=== PATIENT | female | born 1965 | race Two or more races ===

== ENCOUNTER 2022-07-24 11:27 | Emergency (ER) | payer OTHER, SELFPAY ==
--- NOTE | ~2022-07-24 | XR_ITS ---
EXAMINATION: THORACIC SPINE. RIGHT KNEE. LEFT ANKLE. CLINICAL INFORMATION: Pain. Fall COMPARISON: None TECHNIQUE: 2 views of the thoracic spine. 4 views of the right knee. 3 views of the left ankle. FINDINGS: Thoracic spine: No fracture or destructive process. Paraspinal soft tissues are normal. Right knee: No fracture, dislocation or destructive lesion or joint effusion. Left ankle: No fracture, dislocation or destructive process. The ankle mortise is intact. XR/XR knee RT 4V IMPRESSION: Unremarkable studies.
--- NOTE | ~2022-07-24 | XR_ITS ---
EXAMINATION: THORACIC SPINE. RIGHT KNEE. LEFT ANKLE. CLINICAL INFORMATION: Pain. Fall COMPARISON: None TECHNIQUE: 2 views of the thoracic spine. 4 views of the right knee. 3 views of the left ankle. FINDINGS: Thoracic spine: No fracture or destructive process. Paraspinal soft tissues are normal. Right knee: No fracture, dislocation or destructive lesion or joint effusion. Left ankle: No fracture, dislocation or destructive process. The ankle mortise is intact. XR/XR thoracic spine 3V IMPRESSION: Unremarkable studies.
--- NOTE | ~2022-07-24 | XR_ITS ---
EXAMINATION: THORACIC SPINE. RIGHT KNEE. LEFT ANKLE. CLINICAL INFORMATION: Pain. Fall COMPARISON: None TECHNIQUE: 2 views of the thoracic spine. 4 views of the right knee. 3 views of the left ankle. FINDINGS: Thoracic spine: No fracture or destructive process. Paraspinal soft tissues are normal. Right knee: No fracture, dislocation or destructive lesion or joint effusion. Left ankle: No fracture, dislocation or destructive process. The ankle mortise is intact. XR/XR ankle LT min 3V IMPRESSION: Unremarkable studies.
--- NOTE | 2022-07-24 12:19 | ED_ITS ---
HPI - Fall General Chief Complaint: Fall <Selena Sampson CNP - Last Filed: 07/24/22 12:26> Stated Complaint: fall at work <Selena Sampson CNP - Last Filed: 07/24/22 12:26> Time Seen by Provider: 07/24/22 14:13 <Selena Sampson CNP - Last Filed: 07/24/22 12:26> Source: patient and RN notes reviewed <ROBERT Ríos - Last Filed: 07/24/22 14:50> Mode of arrival: ambulatory <ROBERT Ríos - Last Filed: 07/24/22 14:50> Limitations: no limitations <ROBERT Ríos - Last Filed: 07/24/22 14:50> History of Present Illness HPI Narrative: This is a [id number]-fad-female, with a past medical history of hyperlipidemia and hypertension, presenting to the emergency department with complaints of right ankle, right knee, and back pain status post slip and fall which occurred at work this afternoon. Patient reports that she accidentally slipped in a puddle of water at work, and fell onto her buttocks and back. She states that she believes that she twisted her right ankle during this fall. She denies hitting her head or loss of consiousness. She was able to bear weight after the fall. She denies taking any medications prior to her arrival. She reports that she forgot to take her lisinopril this morning. <ROBERT Ríos - Last Filed: 07/24/22 14:50> MD complaint: fall <ROBERT Ríos - Last Filed: 07/24/22 14:50> Onset (ago): hour(s) <ROBERT Ríos Last Filed: 07/24/22 14:50> Fall from: standing <ROBERT Ríos Last Filed: 07/24/22 14:50> Place fall occurred: work <ROBERT Ríos Last Filed: 07/24/22 14:50> Loss of consciousness: none <ROBERT Ríos Last Filed: 07/24/22 14:50> Symptoms prior to fall: none <ROBERT Ríos Last Filed: 07/24/22 14:50> Context: tripped/slipped <ROBERT Ríos - Last Filed: 07/24/22 14:50> Location of injury: back and buttocks <ROBERT Ríos - Last Filed: 07/24/22 14:50> Location of injury - extremities: left: ankle and right: knee <ROBERT Ríos - Last Filed: 07/24/22 14:50> Severity: moderate <ROBERT Ríos - Last Filed: 07/24/22 14:50> Quality: aching <ROBERT Ríos - Last Filed: 07/24/22 14:50> Associated symptoms (after fall): denies <ROBERT Ríos - Last Filed: 07/24/22 14:50> Related Data Allergies/Adverse Reactions: Allergies Allergy/AdvReac Type Severity Reaction Status Date / Time No Known Allergies Allergy Verified 07/24/22 12:19 <Selena Sampson CNP - Last Filed: 07/24/22 12:26> Review of Systems Review of Systems: Yes all other systems are reviewed and are negative <ROBERT Ríos - Last Filed: 07/24/22 14:50> [facility] Social History Social History: Social History Advance Directives: No Advance Directives Information Provided: No <Selena Sampson CNP - Last Filed: 07/24/22 12:26> Physical Exam Vital Signs: Vital Signs: Last Vital Signs Temp 96.9 F 07/24/22 12:20 Pulse 66 07/24/22 12:20 Resp 14 07/24/22 12:20 BP 190/94 H 07/24/22 12:20 Pulse Ox 99 07/24/22 12:20 O2 Del Method 07/24/22 12:20 BMI result Body Mass Index 21.6 <Selena Sampson CNP - Last Filed: 07/24/22 12:26> Vital Signs: Last Vital Signs Temp 96.9 F 07/24/22 12:20 Pulse 66 07/24/22 12:20 Resp 14 07/24/22 12:20 BP 190/94 H 07/24/22 12:20 Pulse Ox 99 07/24/22 12:20 O2 Del Method 07/24/22 12:20 BMI result Body Mass Index 21.6 Appearance: Alert. Oriented X3. No acute distress. HEENT: normal inspection CVS: Normal heart rate and rhythm. Pulses normal. Respiratory: No respiratory distress. Skin: Skin warm and dry. Normal skin color. Normal skin turgor. No rashes. Extremities: Tenderness to palpation over the lateral mallelous without any edema or bony abnormalities. Good strength with plantar flexion and dorsiflexion. Neuro: Oriented X 3. No motor deficit. No sensory deficit. <ROBERT Ríos - Last Filed: 07/24/22 14:50> Course Course Course Narrative: This is an RME: Additional HPI, ROS, PE not included below will be deferred to primary provider. Patient is a 57-year-old female who presents emergency department for evaluation after a fall at work. Occurred today, slipped and fall, landing on her back. Complaining of pain between the shoulders, left ankle, and right knee. Denies head strike, LOC, AC usage <Selena Sampson CNP - Last Filed: 07/24/22 12:26> This is an RME: Additional HPI, ROS, PE not included below will be deferred to primary provider. Patient is a 57-year-old female who presents emergency department for evaluation after a fall at work. Occurred today, slipped and fall, landing on her back. Complaining of pain between the shoulders, left ankle, and right knee. Denies head strike, LOC, AC usage <ROBERT Ríos - Last Filed: 07/24/22 14:50> Reevaluation(s) Reevaluation #1: X-rays of knee, ankle and thoracic spine reviewed and are unremarkable. Patient medicated in department with tylenol 1g PO and lisinopril 20mg PO. BP elevated at 190/94, patient states she did not take her lisinopril this morning, patient given dose, lisinopril 20mg, will recheck. <ROBERT Ríos - Last Filed: 07/24/22 14:50> Time: 14:47 <ROBERT Ríos - Last Filed: 07/24/22 14:50> Medical Decision Making Medical Decision Making MDM Narrative: 31-hhft-upr-female, with a past medical history of hypertension, presenting to the emergency department with left ankle pain status post fall which occurred at work today. She reported knee pain and back pain during triage, only reporting ankle pain at this time. <ROBERT Ríos - Last Filed: 07/24/22 14:50> Differential Diagnosis Differential Diagnoses: The differential diagnosis associated with the presentation includes <ROBERT Ríos - Last Filed: 07/24/22 14:50> left ankle sprain, left ankle strain, left ankle fracture, knee sprain, muscle strain <ROBERT Ríos - Last Filed: 07/24/22 14:50> Independent Interpretation I performed an independent interpretation of an: Plain X-Ray <ROBERT Ríos - Last Filed: 07/24/22 14:50> Interpretation: Left ankle, right knee and thoracic spine x-rays reviewed with no acute bony abnormalities or fractures <ROBERT Ríos - Last Filed: 07/24/22 14:50> Radiology Impression Discussion of test interpretation with radiology: I have reviewed the radiologist's reading. <ROBERT Ríos - Last Filed: 07/24/22 14:50> Radiologist Impression: XR/XR thoracic spine 3V IMPRESSION: Unremarkable studies.? XR/XR knee RT 4V IMPRESSION: Unremarkable studies.? XR/XR ankle LT min 3V IMPRESSION: Unremarkable studies.? <ROBERT Ríos - Last Filed: 07/24/22 14:50> Discharge Plan Discharge Clinical Impression: Ankle sprain, Hypertension, Muscle strain <Selena Sampson CNP - Last Filed: 07/24/22 12:26> Patient Disposition: Home, Self-Care <Selena Sampson CNP - Last Filed: 07/24/22 12:26> Instructions: Ankle Sprain (ED) <Selena Sampson CNP - Last Filed: 07/24/22 12:26> Additional Instructions: Your ankle, knee, and thoracic spine x-rays were normal today. Please rest, ice, and elevate your ankle over the next few days. You may use charles wrap for comfort. Follow up with your primary care physician. Take all regular prescribed medications as directed. If you develop new or worsening symptoms call 911 or come back to the ER for further evaluation. <Selena Sampson, FRAN - Last Filed: 07/24/22 12:26>
[2022-07-24 12:20] VITALS: BP 190/94; PULSE 66; RESP 14; TEMP 36.1; O2SAT 99; BMI 21.6
--- NOTE | 2022-07-24 14:27 | ED.FALL ---
HPI - Fall General Chief Complaint: Fall Stated Complaint: fall at work Time Seen by Provider: 07/24/22 14:13 Source: patient and RN notes reviewed Mode of arrival: ambulatory Limitations: no limitations History of Present Illness HPI Narrative: This is a [id number]-female, with a past medical history of hypertension, presenting to the emergency department, with a complaint of left ankle pain since today. Patient states that while she was at work today, she accidentally slipped in water and landed onto her buttocks. She states that she believes that she twisted her ankle during this slip and fall. She denies hitting her head or loss of consciousness. She states that she is able to bear minimal weight on her left leg secondary to pain. Patient states that she forgot to take her lisinopril this morning. MD complaint: fall Onset (ago): hour(s) Fall from: standing Place fall occurred: work Loss of consciousness: none Symptoms prior to fall: none Context: tripped/slipped Location of injury - extremities: left: ankle Severity: moderate Quality: aching Associated symptoms (after fall): denies Related Data Allergies Allergy/AdvReac Type Severity Reaction Status Date / Time No Known Allergies Allergy Verified 07/24/22 12:19 Review of Systems Review of Systems: Yes all other systems are reviewed and are negative PMFSH Social History Social History Advance Directives: No Advance Directives Information Provided: No Physical Exam Vital Signs: Vital Signs: Last Vital Signs Temp 96.9 F 07/24/22 12:20 Pulse 66 07/24/22 12:20 Resp 14 07/24/22 12:20 BP 190/94 H 07/24/22 12:20 Pulse Ox 99 07/24/22 12:20 O2 Del Method 07/24/22 12:20 BMI result Body Mass Index 21.6 Appearance: Alert. Oriented X3. No acute distress. HEENT: normal inspection CVS: Normal heart rate and rhythm. Pulses normal. Respiratory: No respiratory distress. Skin: Skin warm and dry. Normal skin color. Normal skin turgor. No rashes. Extremities: tenderness to palpation overlying the left lateral ankle with moderate amount of edema. Neuro: Oriented X 3. No motor deficit. No sensory deficit.
[2022-07-24] MEDS: lisinopriL 20 MG TABLET PO (14:41)
[2022-07-24] MEDS: Acetaminophen 325 MG TABLET 975 MG PO (14:43)
[2022-07-24 14:48] VITALS: BP 182/91
[2022-07-24 14:50] VITALS: BP 182/91
[2022-07-24 15:55] LABS: Glucose, Whole Blood 43 mg/dL (60-115)
[2022-07-24 16:14] VITALS: BP 188/82; PULSE 56; RESP 15; TEMP 36.4; O2SAT 99
[2022-07-24 17:17] VITALS: BP 189/109
[2022-07-24 18:53] LABS: Glucose, Whole Blood 162 mg/dL (60-115)
== END 2022-07-24 17:41 | disposition home or self-care (01) ==
PROVIDERS: Emergency Provider Emergency Medicine; PCP Internal Medicine
DX: S93.401A Sprain of unspecified ligament of right ankle, initial encounter (principal); S96.911A Strain of unspecified muscle and tendon at ankle and foot level, right foot, initial encounter; W18.39XA Other fall on same level, initial encounter; I10 Essential (primary) hypertension; E78.5 Hyperlipidemia, unspecified; Y93.89 Activity, other specified; Y92.139 Unspecified place military base as the place of occurrence of the external cause; Y99.0 Civilian activity done for income or pay
CPT/HCPCS: 72072; 73564; 73610; 82947; 99283; 99284